=== PATIENT | female | born 1980 | race Caucasian/White ===

== ENCOUNTER 2019-04-25 23:42 | Emergency (ER) | payer BC ==
[~2019-04-25] VITALS: Ht 160 cm; Wt 88.6 kg
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
--- NOTE | 2019-04-25 23:57 | NUR ---
POLICE HANDCUFFED THE PT PLACED HER UNDER ARREST AND WALKED HER OUT THE BAY DOORS TO TAKE HER TO SENIOR LIVING.
[2019-04-26 00:01] VITALS: BP 124/81
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
== END 2019-04-26 | disposition home or self-care (01) ==
LOC: EDUNIT# 23:42 → ER FS 23:45
DX: S40.812A Abrasion of left upper arm, initial encounter (principal); T74.11XA Adult physical abuse, confirmed, initial encounter; F10.129 Alcohol abuse with intoxication, unspecified; R45.4 Irritability and anger; Y09 Assault by unspecified means
CPT/HCPCS: 99283

== ENCOUNTER 2019-08-09 11:34 | Emergency (ER) | payer BC ==
[~2019-08-09] VITALS: Ht 160 cm; Wt 87.7 kg
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
[2019-08-09] MEDS ORDERED: ONDANSETRON 4 MG (ZOFRAN) ORAL DISSOLVE TAB SL STA (11:53)
[2019-08-09] MEDS ORDERED: TETANUS & DIPHTHERIA TOX,ADULT 0.5 ML (TENIVAC) IM ONE (12:00)
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
[2019-08-09] MEDS ORDERED: METH4TAB10 PO (13:07)
[2019-08-09] MEDS ORDERED: CLIN300C11 PO (13:07)
[2019-08-09] MEDS ORDERED: HYDR-83 PO (13:07)
[2019-08-09 13:24] VITALS: BP 134/86
== END 2019-08-09 13:31 | disposition home or self-care (01) ==
LOC: EDUNIT# 11:34 → ER FS 11:37
DX: S02.31XA Fracture of orbital floor, right side, initial encounter for closed fracture (principal); S02.2XXA Fracture of nasal bones, initial encounter for closed fracture; S02.40CA Maxillary fracture, right side, initial encounter for closed fracture; S00.83XA Contusion of other part of head, initial encounter; S01.412A Laceration without foreign body of left cheek and temporomandibular area, initial encounter; Z23 Encounter for immunization; Y04.8XXA Assault by other bodily force, initial encounter
CPT/HCPCS: 70450; 70486; 72125; 90714

== ENCOUNTER 2020-07-06 06:27 | Emergency (ER) | payer SELFPAY ==
[~2020-07-06 06:27] MED LIST: ACHD5005 PO; CLIN300C12 PO; METH4TAB10 PO
[2020-07-06] MEDS ORDERED: LACTATED RINGERS 1,000 ML IV STA (06:39)
[2020-07-06] MEDS ORDERED: fentaNYL INJ 100 MCG/2 ML AMP IVP STA (06:39)
--- NOTE | 2020-07-06 06:39 | ED Abdominal Pain ---
General Stated Complaint: LOWER ABDOMINAL PAIN History of Present Illness Date Seen by Provider: July 06, 2020 Time Seen by Provider: 06:35 Initial Comments 39-year-old female presents with lower abdominal pain and cramping. Pain is in the suprapubic region. Patient reports that she has been having some abnormal vaginal bleeding for about 6 months. Patient reports that couple months ago she is started on different control pills. The did slow the bleeding. She started bleeding 3 weeks ago that lasted 2 weeks. She started up with her vaginal bleeding again. She is having significant cramping that started throughout the night last night. She denies any dysuria. She reports she is nauseated but believes is from the pain. Patient reports that she was told she had a prolapsed uterus and with some point will need a hysterectomy. She reports that the cramping starts in suprapubic area radiates bilateral and into her back. (VALDO GARCIA DO) Allergies and Home Medications Allergies Coded Allergies: No Known Drug Allergies (Unverified , 08/09/19) Home Medications Clindamycin HCl 300 Mg Capsule, 300 MG PO TID Prescribed by: VALDO GARCIA on 08/09/19 1307 Hydrocodone/Acetaminophen 1 Each Tablet, 1 EACH PO Q8H PRN for PAIN-BREAKTHROUGH Prescribed by: VALDO GARCIA on 08/09/19 1308 Medroxyprogesterone Acetate 10 Mg Tablet, 10 MG PO DAILY Prescribed by: JENNA KAUR on 07/06/20 0843 Methylprednisolone 4 Mg Tab.ds.pk, 4 MG PO UD PER DOSE PACK INSTRUCTIONS Prescribed by: VALDO GARCIA on 08/09/19 1307 Patient Home Medication List Home Medication List Reviewed: Yes (VALDO GARCIA DO) Review of Systems Review of Systems Constitutional: No chills, No fever EENTM: No Symptoms Reported Respiratory: Denies Cough, Denies Shortness of Air Cardiovascular: Denies Chest Pain, Denies Edema Gastrointestinal: Abdominal Pain; Denies Diarrhea; Nausea; Denies Vomiting Genitourinary: See HPI; Denies Burning Musculoskeletal: see HPI Skin: no symptoms reported Psychiatric/Neurological: No Symptoms Reported Endocrine: No Symptoms Reported (VALDO GARCIA DO) Past Xhuvuty-Xmzauj-Ifqgnj Hx Past Med/Social Hx: Reviewed Nursing Past Med/Soc Hx (VALDO GARCIA DO) Patient Social History Drug of Choice: marijuana Type Used: Cigarettes 2nd Hand Smoke Exposure: No Recent Hopitalizations: No (FATOUMATA GARCIALashell Turner DO) Immunizations Up To Date Tetanus Booster (TDap): More than 5yrs (GARCIAVALDO L DO) Seasonal Allergies Seasonal Allergies: No (JOSEVALDO Yue ANTON) Past Medical History Surgeries: Yes Adenoidectomy, Appendectomy, Tonsillectomy Respiratory: No Cardiac: Yes Hypertension Neurological: No Genitourinary: No Gastrointestinal: No Musculoskeletal: Yes Fibromyalgia, Rheumatoid Arthritis Endocrine: No HEENT: No Cancer: No Psychosocial: No Anxiety Integumentary: No Blood Disorders: No (VALDO GARCIA DO) Physical Exam Vital Signs Vital Signs - First Documented 07/06/20 06:30 Temp 35.7 Pulse 77 Resp 18 B/P (MAP) 119/73 (88) Pulse Ox 98 O2 Delivery Room Air (MARIA ESTHERVENMANUELJENNA Yue ANTON) Vital Signs Capillary Refill : (VALDO GARCIA ) Height/Weight/BMI Height: '" Weight: lbs. oz. kg; 34.00 BMI Method: General Appearance: moderate distress, obese Neck: full range of motion, supple Respiratory: lungs clear, normal breath sounds Cardiovascular: normal peripheral pulses, regular rate, rhythm Gastrointestinal: soft; No distended; tenderness (Suprapubic) Extremities: normal range of motion, non-tender Neurologic/Psychiatric: alert, normal mood/affect, oriented x 3 Skin: normal color, warm/dry (VALDO GARCIA DO) Progress/Results/Core Measures Results/Orders Lab Results Laboratory Tests Test 07/06/20 06:45 07/06/20 07:51 Range/Units White Blood Count 11.3 H 4.3-11.0 10^3/uL Red Blood Count 3.78 L 4.35-5.85 10^6/uL Hemoglobin 11.1 L 11.5-16.0 G/DL Hematocrit 34 L 35-52 % Mean Corpuscular Volume 89 80-99 FL Mean Corpuscular Hemoglobin 29 25-34 PG Mean Corpuscular Hemoglobin Concent 33 32-36 G/DL Red Cell Distribution Width 13.5 10.0-14.5 % Platelet Count 302 130-400 10^3/uL Mean Platelet Volume 10.2 7.4-10.4 FL Immature Granulocyte % (Auto) 0 % Neutrophils (%) (Auto) 78 H 42-75 % Lymphocytes (%) (Auto) 15 12-44 % Monocytes (%) (Auto) 5 0-12 % Eosinophils (%) (Auto) 2 0-10 % Basophils (%) (Auto) 0 0-10 % Neutrophils # (Auto) 8.8 H 1.8-7.8 X 10^3 Lymphocytes # (Auto) 1.7 1.0-4.0 X 10^3 Monocytes # (Auto) 0.6 0.0-1.0 X 10^3 Eosinophils # (Auto) 0.2 0.0-0.3 10^3/uL Basophils # (Auto) 0.0 0.0-0.1 10^3/uL Immature Granulocyte # (Auto) 0.0 0.0-0.1 10^3/uL Sodium Level 137 135-145 MMOL/L Potassium Level 3.6 3.6-5.0 MMOL/L Chloride Level 105 98-107 MMOL/L Carbon Dioxide Level 21 21-32 MMOL/L Anion Gap 11 5-14 MMOL/L Blood Urea Nitrogen 16 7-18 MG/DL Creatinine 0.91 0.60-1.30 MG/DL Estimat Glomerular Filtration Rate > 60 BUN/Creatinine Ratio 18 Glucose Level 124 H 70-105 MG/DL Calcium Level 8.9 8.5-10.1 MG/DL Corrected Calcium 9.1 8.5-10.1 MG/DL Total Bilirubin 0.2 0.1-1.0 MG/DL Aspartate Amino Transf (AST/SGOT) 11 5-34 U/L Alanine Aminotransferase (ALT/SGPT) 14 0-55 U/L Alkaline Phosphatase 61 40-136 U/L C-Reactive Protein 2.54 H <0.50 MG/DL Total Protein 7.0 6.4-8.2 GM/DL Albumin 3.8 3.2-4.5 GM/DL Urine Color YELLOW Urine Clarity CLOUDY Urine pH 6.0 5-9 Urine Specific Piffard 1.020 1.016-1.022 Urine Protein TRACE H NEGATIVE Urine Glucose (UA) NEGATIVE NEGATIVE Urine Ketones NEGATIVE NEGATIVE Urine Nitrite NEGATIVE NEGATIVE Urine Bilirubin NEGATIVE NEGATIVE Urine Urobilinogen 0.2 < = 1.0 MG/DL Urine Leukocyte Esterase NEGATIVE NEGATIVE Urine RBC (Auto) 3+ H NEGATIVE Urine RBC >100 H /HPF Urine WBC NONE /HPF Urine Squamous Epithelial Cells 5-10 /HPF Urine Crystals NONE /LPF Urine Bacteria TRACE /HPF Urine Casts NONE /LPF Urine Mucus NEGATIVE /LPF Urine Culture Indicated NO Urine Test NEGATIVE NEGATIVE (LEASTJENNA VALDES L ) My Orders Orders - JENNA KAUR DO Ct Abdomen/Pelvis W (07/06/20 07:22) Iohexol Injection (Omnipaque 350 Mg/Ml 1 (07/06/20 07:30) Received Contrast (Hold Metformin- Contr (07/06/20 07:30) Sodium Chloride Flush (Catheter Flush Sy (07/06/20 07:30) Ns (Ivpb) (Sodium Chloride 0.9% Ivpb Bag (07/06/20 07:30) (JENNA KAUR DO) Medications Given in ED Current Medications Medications Dose Ordered Sig/Darell Route Start Time Stop Time Status Last Admin Dose Admin Iohexol 100 ml ONCE ONCE IV 07/06/20 07:30 07/06/20 07:32 DC 07/06/20 07:39 100 ML Ondansetron HCl 4 mg ONCE ONCE IVP 07/06/20 06:45 07/06/20 06:46 DC 07/06/20 06:46 4 MG Sodium Chloride 10 ml NEEDED PRN IV 07/06/20 07:30 07/06/20 07:39 10 ML Sodium Chloride 100 ml ONCE ONCE IV 07/06/20 07:30 07/06/20 07:32 DC 07/06/20 07:39 80 ML (JENNA KAUR DO) Vital Signs/I&O 07/06/20 06:30 Temp 35.7 Pulse 77 Resp 18 B/P (MAP) 119/73 (88) Pulse Ox 98 O2 Delivery Room Air (JENNA KAUR DO) Diagnostic Imaging Comments FINDINGS: The visualized portions of the lung bases are clear. The heart is not enlarged. There is no pericardial effusion. The liver is unremarkable in size and contour. There is no identified liver lesion. The main, right, and left portal veins are patent. The gallbladder is unremarkable. There is no intrahepatic or extrahepatic bile duct dilation. The main pancreatic duct is not abnormally dilated. Unremarkable appearance of the pancreatic parenchyma. The spleen is normal in size. The adrenal glands are unremarkable. Unremarkable appearance of the renal parenchyma. The urinary collecting systems are not distended. There is no identified renal or ureteral stone. Urinary bladder is unremarkable. There is low-attenuation at the level of the lower uterine segment/cervix which is nonspecific. There is also question of abnormal low-attenuation in the endometrial cavity, particularly in its mid to lower aspect. The intestinal tract is not distended. There is no evidence of acute appendicitis. There is no free intraperitoneal air. There is no drainable fluid collection. There is no free pelvic fluid. There is a probable right ovarian cyst on axial image 68 measuring 2.5 cm in size. There is no identified abnormally enlarged lymph node in the abdomen or pelvis meeting CT size criteria for adenopathy. There is no identified acute bony abnormality. There are disc degenerative changes at L4-L5. There are mild disc degenerative changes of the lower thoracic spine. IMPRESSION: CT ABDOMEN AND PELVIS. 1. Low-attenuation in the region of the lower uterine segment/cervix as well as questionable abnormal fluid in the endometrial cavity, particularly within its mid and lower aspect. Recommend dedicated pelvic ultrasound for further assessment. 2. Probable 2.5 cm right ovarian cyst. 3. No otherwise identified potential acute abnormality in the abdomen or pelvis. Dictated on workstation # [id number] Dict: 07/06/20 0801 Trans: 07/06/20 0830 [facility] [id number] Interpreted by: ADRIENNE WHITLOCK MD Electronically signed by: (JENNA KAUR DO) Departure Impression Primary Impression: DUB (dysfunctional uterine bleeding) Disposition: 01 HOME, SELF-CARE Condition: Stable Departure-Patient Inst. Decision time for Depature: 08:41 (JENNA KAUR DO) Referrals: ELADIO JAMIL DO (PCP/Family) Primary Care Physician VIC YE DO Add. Discharge Instructions: Follow up with your PCP or Dr Vic Ye in 1 week for further evaluation of your irregular bleeding. You are recommended to have a pelvic ultrasound as well. Scripts Medroxyprogesterone Acetate (Provera) 10 Mg Tablet 10 MG PO DAILY, #10 TAB Prov: JENNA KAUR DO 07/06/20 VALDO GARCIA DO July 06, 2020 06:39 JENNA KAUR DO July 06, 2020 08:43
[2020-07-06] MEDS ORDERED: ONDANSETRON 4 MG/2 ML (SDV) Z0FRAN IVP ONE (06:45)
[2020-07-06 07:01] LABS: BASOPHILS % (AUTO) 0 % (0-10); EOSINOPHILS # (AUTO) 0.2 10^3/uL (0.0-0.3); EOSINOPHILS % (AUTO) 2 % (0-10); HEMATOCRIT 34 % (35-52); HEMOGLOBIN 11.1 G/DL (11.5-16.0); LYMPHOCYTES # (AUTO) 1.7 X 10^3 (1.0-4.0); LYMPHOCYTES % (AUTO) 15 % (12-44); MEAN CORPUSCULAR HEMOGLOBIN 29 PG (25-34); MEAN CORPUSCULAR HGB CONC 33 G/DL (32-36); MEAN CORPUSCULAR VOLUME 89 FL (80-99); MEAN PLATELET VOLUME 10.2 FL (7.4-10.4); MONOCYTES # (AUTO) 0.6 X 10^3 (0.0-1.0); MONOCYTES % (AUTO) 5 % (0-12); NEUTROPHILS # (AUTO) 8.8 X 10^3 (1.8-7.8); NEUTROPHILS % (AUTO) 78 % (42-75); PLATELET COUNT 302 10^3/uL (130-400); WHITE BLOOD COUNT 11.3 10^3/uL (4.3-11.0)
[2020-07-06 07:19] LABS: ALKALINE PHOSPHATASE 61 U/L (40-136); BILIRUBIN,TOTAL 0.2 MG/DL (0.1-1.0); BUN/CREATININE RATIO 18; CALCIUM 8.9 MG/DL (8.5-10.1); CARBON DIOXIDE 21 MMOL/L (21-32); CHLORIDE 105 MMOL/L (98-107); CREATININE SERUM 0.91 MG/DL (0.60-1.30); GFR ESTIMATED > 60; GLUCOSE 124 MG/DL (70-105); POTASSIUM 3.6 MMOL/L (3.6-5.0); SODIUM 137 MMOL/L (135-145)
[2020-07-06 07:20] LABS: ALANINE AMINOTRANSFERASE 14 U/L (0-55); ALBUMIN 3.8 GM/DL (3.2-4.5)
[2020-07-06] MEDS ORDERED: CATHETER FLUSH 10 ML SYR IV PRN (07:30)
[2020-07-06] MEDS ORDERED: NS 100 ML (IVPB) BAG IV ONE (07:30)
[2020-07-06] MEDS ORDERED: IOHEXOL 350 MG/ML 100 ML (OMNIPAQUE 350) VIAL IV ONE (07:30)
[2020-07-06] MEDS ORDERED: HOLD METFORMIN - RECEIVED CONTRAST 20 ML VIAL IV SCH (07:30)
[2020-07-06 08:00] LABS: BACTERIA,URINE TRACE /HPF; BILIRUBIN,URINE NEGATIVE (NEGATIVE); CLARITY,URINE CLOUDY; COLOR,URINE YELLOW; GLUCOSE, URINE (UA) NEGATIVE (NEGATIVE); KETONES,URINE NEGATIVE (NEGATIVE); LEUKOCYTE ESTERASE ,URINE NEGATIVE (NEGATIVE); NITRITE,URINE NEGATIVE (NEGATIVE); PROTEIN,URINE TRACE (NEGATIVE); RBC,URINE >100 /HPF
--- NOTE | 2020-07-06 08:31 | Diagnostic Imaging Report ---
PROCEDURE: CT abdomen and pelvis with contrast. TECHNIQUE: Multiple contiguous axial images were obtained through the abdomen and pelvis after administration of intravenous contrast. Auto Exposure Controls were utilized during the CT exam to meet ALARA standards for radiation dose reduction. All CT scans use one or more of the following dose optimizing techniques: automated exposure control, MA and/or KvP adjustment based on patient size and exam type or iterative reconstruction. DATE: 07/06/2020. COMPARISON: None. INDICATION: 39-year-old female, pelvic pain and dysfunctional uterine bleeding. FINDINGS: The visualized portions of the lung bases are clear. The heart is not enlarged. There is no pericardial effusion. The liver is unremarkable in size and contour. There is no identified liver lesion. The main, right, and left portal veins are patent. The gallbladder is unremarkable. There is no intrahepatic or extrahepatic bile duct dilation. The main pancreatic duct is not abnormally dilated. Unremarkable appearance of the pancreatic parenchyma. The spleen is normal in size. The adrenal glands are unremarkable. Unremarkable appearance of the renal parenchyma. The urinary collecting systems are not distended. There is no identified renal or ureteral stone. Urinary bladder is unremarkable. There is low-attenuation at the level of the lower uterine segment/cervix which is nonspecific. There is also question of abnormal low-attenuation in the endometrial cavity, particularly in its mid to lower aspect. The intestinal tract is not distended. There is no evidence of acute appendicitis. There is no free intraperitoneal air. There is no drainable fluid collection. There is no free pelvic fluid. There is a probable right ovarian cyst on axial image 68 measuring 2.5 cm in size. There is no identified abnormally enlarged lymph node in the abdomen or pelvis meeting CT size criteria for adenopathy. There is no identified acute bony abnormality. There are disc degenerative changes at L4-L5. There are mild disc degenerative changes of the lower thoracic spine. IMPRESSION: CT ABDOMEN AND PELVIS. 1. Low-attenuation in the region of the lower uterine segment/cervix as well as questionable abnormal fluid in the endometrial cavity, particularly within its mid and lower aspect. Recommend dedicated pelvic ultrasound for further assessment. 2. Probable 2.5 cm right ovarian cyst. 3. No otherwise identified potential acute abnormality in the abdomen or pelvis. Dictated by: Dictated on workstation # [id number]
[2020-07-06] MEDS ORDERED: MEDR10TA PO (08:43)
[2020-07-06 08:50] VITALS: BP 124/72
== END 2020-07-06 08:53 | disposition home or self-care (01) ==
LOC: EDUNIT# 06:27 → ER FS 06:30
DX: N93.8 Other specified abnormal uterine and vaginal bleeding (principal); I10 Essential (primary) hypertension; E66.9 Obesity, unspecified; Z68.34 Body mass index [BMI] 34.0-34.9, adult
CPT/HCPCS: 36415; 74177; 80053; 81000; 84703; 85025; 86141

== ENCOUNTER 2020-10-07 15:16 | Emergency (ER) | payer OTHER ==
[~2020-10-07] VITALS: Ht 160 cm; Wt 104.0 kg
[~2020-10-07 15:16] MED LIST changes: +MEDR10TA PO
[2020-10-07 15:44] VITALS: BP 152/96
--- NOTE | 2020-10-07 15:49 | ED Integumentary General ---
General Stated Complaint: FOREHEAD LAC Source: patient Exam Limitations: no limitations History of Present Illness Date Seen by Provider: Oct 07, 2020 Time Seen by Provider: 15:30 Initial Comments 39-year-old female with past medical history of hypertension coming in after she stood up at work and hit her forehead on a corner causing a cut. This occurred 20 minutes prior to arrival. She did not pass out, have any vision changes, headache, vomiting, weakness, numbness, or any other concerns. Tetanus updated within the past year. She is otherwise denying any other acute complaints. Allergies and Home Medications Allergies Coded Allergies: No Known Drug Allergies (Unverified , 08/09/19) Home Medications Clindamycin HCl 300 Mg Capsule, 300 MG PO TID Prescribed by: VALDO GARCIA on 08/09/19 1307 Hydrocodone/Acetaminophen 1 Each Tablet, 1 EACH PO Q8H PRN for PAIN-BREAKTHROUGH Prescribed by: VALDO GARCIA on 08/09/19 1308 Medroxyprogesterone Acetate 10 Mg Tablet, 10 MG PO DAILY Prescribed by: JENNA KAUR on 07/06/20 0843 Methylprednisolone 4 Mg Tab.ds.pk, 4 MG PO UD PER DOSE PACK INSTRUCTIONS Prescribed by: VALDO GARCIA on 08/09/19 1307 Patient Home Medication List Home Medication List Reviewed: Yes Review of Systems Review of Systems Constitutional: No fever EENTM: No blurred vision Respiratory: No cough Cardiovascular: No chest pain Gastrointestinal: No abdominal pain Genitourinary: No dysuria Musculoskeletal: No back pain Skin: No rash Psychiatric/Neurological: Denies Anxiety Endocrine: No Symptoms Reported Hematologic/Lymphatic: No Symptoms Reported All Other Systems Reviewed Negative Unless Noted: Yes Past Behjmuq-Uraaut-Zazkwj Hx Patient Social History Tobacco Use?: Yes Immunizations Up To Date Tetanus Booster (TDap): More than 5yrs Seasonal Allergies Seasonal Allergies: No Past Medical History Surgeries: Yes Adenoidectomy, Appendectomy, Tonsillectomy, Tubal Ligation Respiratory: No Cardiac: Yes Hypertension Neurological: No Genitourinary: No Gastrointestinal: No Musculoskeletal: Yes Fibromyalgia, Rheumatoid Arthritis Endocrine: No HEENT: No Cancer: No Psychosocial: No Anxiety Integumentary: No Blood Disorders: No Physical Exam Vital Signs Capillary Refill : General Appearance: WD/WN, no apparent distress HEENT: PERRL/EOMI, normal ENT inspection, pharynx normal Neck: non-tender, full range of motion, supple, normal inspection Cardiovascular: regular rate, rhythm, no edema, no murmur Respiratory: chest non-tender, lungs clear, normal breath sounds, no respiratory distress, no accessory muscle use Gastrointestinal: normal bowel sounds, non tender, soft; No distended, No guarding, No rebound Back: normal inspection Extremities: normal range of motion, non-tender, normal inspection, no pedal edema, no calf tenderness Neurologic/Psychiatric: no motor/sensory deficits, alert, normal mood/affect, oriented x 3 Skin: normal color, warm/dry Skin Problem Location: other (1 cm laceration to the middle of her forehead t hat is hemostatic, roughly 1 mm in depth) Lymphatic: no adenopathy Procedures/Interventions Wound Location: Face Other Wound Location forehead Wound Length (cm): 1 Wound's Depth, Shape: superficial Wound Explored: clean Irrigated w/ Saline (ccs): 100 Betadine Prep?: Yes Wound Debrided: minimal Other Closure Supply: Steri Strip 02/18", Mastisol, Wound Adhesive Progress/Results/Core Measures Progress Progress Note : Progress Note 39-year-old female with above history coming in after she cut her forehead. ABCs were intact and vitals were stable on presentation. GCS 15. She is C anadian head CT rule negative and I do not believe she needs a scan of her head. Tetanus is updated. The wound was cleaned and closed with glue followed by Steri-Strips. It was hemostatic during the entire visit. I believe she is stable for discharge. She was sent home with strict return precautions Departure Impression Primary Impression: Forehead laceration Qualified Codes: S01.81XA - Laceration without foreign body of other part of head, initial encounter Disposition: HOME, SELF-CARE Condition: Stable Departure-Patient Inst. Referrals: COLLIN BARRERA APRN (PCP/Family) Primary Care Physician Patient Instructions: Laceration Repair With Glue ED Add. Discharge Instructions: You were seen in the emergency department for a laceration to her forehead. It was closed with glue and Steri-Strips. Let the Steri-Strips fall off on their own. Do not let it get wet for the next few days. Come back if you have any concerns. LAWRENCE WEBB MD Oct 07, 2020 15:49
--- OUTSIDE RECORDS SUMMARY | 2020-10-07 22:45 | XMS REPORT | Clinical Summary ---
Author Author [facility] Organization [facility] Address Unknown Phone Unavailable Care Team Providers Care Fructose Loader Name Role Phone Trace Freeman DO PCP Source Comments Some departments are not documenting in the electronic medical record. If you d o not see the information that you expected, contact Release of Information in [facility] [employer] Information Management department at [phone] for further assistan ce in locating additional records.[facility] Allergies No Known Active Allergies Medications End Date Status Medication Sig Dispensed Refills Start Date Active topiramate 200 mg CSpX Take 200 mg 0 by mouth twice daily. Active citalopram (CELEXA) 40 mg Take 40 mg by 0 tablet mouth daily. Active clonazePAM (KLONOPIN) 2 Take 2 mg by 0 mg tablet mouth four times daily. Active cyclobenzaprine Take 10 mg by 0 (FLEXERIL) 10 mg tablet mouth three times daily as needed for Muscle Cramps. Active rizatriptan (MAXALT) 10 Take 10 mg by 0 mg tablet mouth once as needed. May repeat in 2 hours in needed Active sumatriptan succinate Take 100 mg 0 (IMITREX) 100 mg tablet by mouth as Needed for Migraine symptoms. Dose may be repeated in 2 hours if needed. Max of 2 tablets in 24 hours. Active mometasone (NASONEX) 50 Apply 2 0 mcg/actuation nasal spray sprays to each nostril as directed daily. Active loratadine (CLARITIN) 5 Take 5 mg by 0 mg/5 mL oral solution mouth daily. Active esomeprazole DR (NEXIUM) Take 20 mg by 0 20 mg capsule mouth every morning. Take on an empty stomach at least 1 hour before or 2 hours after food. Active ibuprofen (ADVIL) 200 mg Take 200 mg 0 tablet by mouth every 6 hours as needed for Pain. Take with food. Active acetaminophen (TYLENOL Take by 0 PO) mouth. Active ascorbic acid (VITAMIN C Take by 0 PO) mouth. Active ferrous sulfate (IRON PO) Take by 0 mouth. Active traMADol (ULTRAM) 50 mg Take 50 mg by 0 tablet mouth every 6 hours as needed for Pain. Active lisinopril (ZESTRIL) 5 mg Take 5 mg by 0 tablet mouth daily. Active ondansetron (ZOFRAN) 4 mg Take 4 mg by 0 tablet mouth every 8 hours as needed for Nausea or Vomiting. Active pilocarpine (SALAGEN) 5 Take one 90 tablet 3 mg tablet tablet by 0 mouth three times daily. Active Problems Not on file Surgical History Surgery Date Site/Laterality Comments HX APPENDECTOMY HX TUBAL LIGATION TONSIL AND ADENOIDECTOMY Medical History Medical History Date Comments Depression Anxiety disorder Rheumatoid arthritis (HCC) Allergy Headache Family History Medical History Relation Name Comments Arthritis-osteo Father Heart Disease Father Cancer Mother Fibromyalgia Mother Heart Disease Mother Relation Name Status Comments Father Mother Social History Date Tobacco Use Types Packs/Day Years Used Current Every Day Smoker Cigarettes 1 23 Smokeless Tobacco: Never Used Comments Alcohol Use Standard Drinks/Week occationally Yes 0 (1 standard drink = 0.6 o z pure alcohol) Sex Assigned at Date Recorded Not on file Last Filed Vital Signs Reading Time Taken Comments Vital Sign 145/95 03/23/2019 4:15 PM HEARING STENOGRAPHER Blood Pressure 99 03/23/2019 4:15 PM HEARING STENOGRAPHER Pulse 36.8 C (98.2 F) 03/23/2019 4:15 PM HEARING STENOGRAPHER Temperature 16 03/23/2019 4:15 PM HEARING STENOGRAPHER Respiratory Rate 97% 03/23/2019 4:15 PM HEARING STENOGRAPHER Oxygen Saturation - - Inhaled Oxygen Concentration 90.3 kg (199 lb) 03/23/2019 4:15 PM HEARING STENOGRAPHER Weight 160 cm (5' 2.99") 03/23/2019 4:15 PM HEARING STENOGRAPHER Height 35.26 03/23/2019 4:15 PM HEARING STENOGRAPHER Body Mass Index Plan of Treatment Health Maintenance Due Date Last Done Comments HIV SCREENING 10/12/1994 DTAP/TDAP VACCINES (1 - 10/12/1997 Tdap) HEPATITIS C SCREENING 10/12/1997 PHYSICAL (COMPREHENSIVE) 10/12/1997 EXAM CERVICAL CANCER SCREENING 10/12/2000 BREAST CANCER SCREENING 2019 INFLUENZA VACCINE 11/15/2020 Results Not on filefrom Last 3 Months Insurance Type Payer Benefit Subscriber ID Effective Phone Address Plan / Dates Group PPO [facility]BS [facility] [id number] 2018- [facility] Present [address] [phone] Advance Directives Patient Production Tech Explanation Type Date Recorded Advance Directive/DPOA
== END 2020-10-07 15:54 | disposition home or self-care (01) ==
LOC: EDUNIT# 15:16 → ER FS 15:18
DX: S01.81XA Laceration without foreign body of other part of head, initial encounter (principal); I10 Essential (primary) hypertension; Z79.52 Long term (current) use of systemic steroids; W22.8XXA Striking against or struck by other objects, initial encounter

== ENCOUNTER 2020-11-05 23:15 | Emergency (ER) | payer OTHER ==
[~2020-11-05] VITALS: Ht 160 cm; Wt 104.2 kg
--- NOTE | 2020-11-05 23:24 | ED Upper Extremity ---
General Chief Complaint: Laceration Stated Complaint: RIGHT FINGER LACERATION Source: patient, old records History of Present Illness Date Seen by Provider: Nov 05, 2020 Time Seen by Provider: 23:19 Initial Comments 40 yo female presenting from work at [employer]. 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 She had her last tetanus update August 09, 2019. She is left hand dominant and the cut is on the right index finger. she has normal sensation and movement, but increased pain with movement. The cut is over the PIP joint of right index finger. No foreign body. Bleeding controlled with pressure dressing on arrival to ED. Onset: just prior to arrival Severity: mild Pain/Injury Location: right 2nd finger Method of Injury: incised Modifying Factors: Worse With Movement Allergies and Home Medications Allergies Coded Allergies: No Known Drug Allergies (Unverified , 08/09/19) Patient Home Medication List Home Medication List Reviewed: Yes Cephalexin (Cephalexin) 500 Mg Capsule, 500 MG PO TID Prescribed by: SAHIL ARRIETA on 11/06/20 0015 Clindamycin HCl (Clindamycin HCl) 300 Mg Capsule, 300 MG PO TID Prescribed by: VALDO GARCIA on 08/09/19 1307 Hydrocodone/Acetaminophen (Hydrocodone-Acetamin 5-325 mg) 1 Each Tablet, 1 EACH PO Q8H PRN for PAIN-BREAKTHROUGH Prescribed by: VALDO GARCIA on 08/09/19 1308 Medroxyprogesterone Acetate (Provera) 10 Mg Tablet, 10 MG PO DAILY Prescribed by: JENNA KAUR on 07/06/20 0843 Methylprednisolone (Methylprednisolone Dose Pack) 4 Mg Tab.ds.pk, 4 MG PO UD Prescribed by: VALDO GARCIA on 08/09/19 1307 Review of Systems Constitutional: No chills, No fever EENTM: nose congestion, throat pain Respiratory: No cough Cardiovascular: no symptoms reported Gastrointestinal: no symptoms reported Genitourinary: no symptoms reported Musculoskeletal: see HPI Skin: see HPI Psychiatric/Neurological: Denies Numbness, Denies Paresthesia Past Bkukwhh-Iizijm-Zhjeuz Hx Immunizations Up To Date Tetanus Booster (TDap): More than 5yrs Seasonal Allergies Seasonal Allergies: No Past Medical History Surgeries: Yes Adenoidectomy, Appendectomy, Tonsillectomy, Tubal Ligation Respiratory: No Cardiac: Yes Hypertension Neurological: No Genitourinary: No Gastrointestinal: No Musculoskeletal: Yes Fibromyalgia, Rheumatoid Arthritis Endocrine: No HEENT: No Cancer: No Psychosocial: No Anxiety Integumentary: No Blood Disorders: No Physical Exam Vital Signs Vital Signs - First Documented 11/05/20 23:27 Temp 36.1 Pulse 95 Resp 14 B/P (MAP) 122/84 (97) Pulse Ox 98 O2 Delivery Room Air Capillary Refill : Height, Weight, BMI Height: '" Weight: lbs. oz. kg; 40.00 BMI Method: General Appearance: WD/WN, no apparent distress HEENT: PERRL/EOMI, normal ENT inspection, TMs normal, pharynx normal Neck: non-tender, full range of motion, supple, normal inspection Cardiovascular: normal peripheral pulses, regular rate, rhythm Respiratory: chest non-tender, lungs clear, normal breath sounds, no respiratory distress, no accessory muscle use Hand: laceration (right index finger PIP joint), limited ROM (due to pain), soft tissue tenderness Neurologic/Tendon: normal sensation, normal motor functions, normal tendon functions Neurologic/Psychiatric: alert, oriented x 3 Skin: normal color, warm/dry Procedures/Interventions Wound Location: Upper Extremities (right index finger PIP joint) Wound Length (cm): 1.3 Wound's Depth, Shape: sub Q Wound Explored: clean Anesthesia: 1% Lidocaine (digital ring block) Volume Anesthetic (ccs): 6 Suture: Ethlion Suture Size: 4-0 Number of Sutures: 4 Layer Closure?: 1 Sterile Dressing Applied?: Yes Progress After obtaining verbal consent from the patient the right index finger was anesthetized using a digital block approach with 1% plain lidocaine. A total of 6 mL of 1% plain lidocaine were infiltrated in a ring block fashion for the digital block. Then chlorhexidine scrub soap and sterile water was used to clean the wound. The wound was explored and no foreign bodies were seen. The wound edges were approximated using 4-0 Ethilon. A total of 4 simple interrupted stitches were placed and the wound edges were well approximated. Patient tolerated procedure well without any immediate complications. A postprocedure x- ray was obtained and confirmed that there were no foreign bodies or bony injury on my review of the films. Patient was placed in a bulky dressing and splint for tonight and advised to use the splint to prevent bending of her finger until the stitches are removed in 2 weeks. Take a 7-day course of Keflex to help prevent infection since it was a dirty knife. Counseled on follow-up and return precautions. Progress/Results/Core Measures Results/Orders My Orders Orders - SAHIL ARRIETA MD Lidocaine 1% Inj 20 Ml (Xylocaine 1% Inj (11/05/20 23:23) Suture Set At Bedside (11/05/20 23:23) Wound Dressing-Ed (11/05/20 23:23) Finger(S) (11/06/20 00:05) Ed Ortho/Other Supplies Order (11/06/20 00:05) Orthopedic Equiment (11/06/20 00:05) Cephalexin Capsule (Keflex Capsule) (11/06/20 00:06) Vital Signs/I&O 11/05/20 23:27 Temp 36.1 Pulse 95 Resp 14 B/P (MAP) 122/84 (97) Pulse Ox 98 O2 Delivery Room Air Progress Progress Note : Progress Note Patient is neurovascular and tendon intact to the right index finger. She is left-hand dominant. Her tetanus is up-to-date from July 2019. Verbally consented and proceeded with repair of the laceration. The wound edges were well approxi mated using 4-0 Ethilon and a total of 4 simple interrupted stitches. Sent with splint to place tomorrow when she takes off the bulky dressing. Work note detailing light duty. Counseled on follow-up and return precautions. Given first dose of Keflex here and prescription sent to apothecary at request of patient. Diagnostic Imaging Diagonstic Imaging: Xray Plain Films/CT/US/NM/MRI: other (Index finger) Comments On my review of the films of the right index finger there is no acute bony injury and no foreign body. Reviewed: Reviewed by Me Departure Impression Primary Impression: Laceration of right index finger w/o foreign body w/o damage to nail Qualified Codes: S61.210A - Laceration without foreign body of right index finger without damage to nail, initial encounter Disposition: HOME, SELF-CARE Condition: Stable Departure-Patient Inst. Decision time for Depature: 00:29 Referrals: COLLIN BARRERA APRN (PCP/Family) Primary Care Physician Patient Instructions: Laceration Repair With Stitches ED, Wound Care ED Add. Discharge Instructions: Keep wound clean and dry for first 24 hours. Then keep the wound covered if it might get dirty and while at work. Use splint to prevent bending of your finger. Follow up with Work Comp clinic for continued concerns and removal of stitches after 14 days or be seen sooner if concerns for infection such as redness streaking up your finger and hand, pus draining from wound, fever over 101 F. May take Ibuprofen and Acetaminophen as needed for pain. Take full course of antibiotics to help prevent infection All discharge instructions reviewed with patient and/or family. Voiced understanding. Scripts Cephalexin (Cephalexin) 500 Mg Capsule 500 MG PO TID for finger laceration for 7 Days, #21 CAP 0 Refills Prov: SAHIL ARRIETA MD 11/06/20 SAHIL ARRIETA MD Nov 05, 2020 23:24
[2020-11-06] MEDS ORDERED: CEPH500C PO (00:15)
[2020-11-06] MEDS: CEPHALEXIN 250 MG (KEFLEX) CAP PO STA (00:29)
[2020-11-06] MEDS: LIDOCAINE 1% INJ 20 ML 20 ML VIAL INJ STA (00:30)
[2020-11-06 00:35] VITALS: BP 122/84
--- NOTE | 2020-11-06 07:30 | Diagnostic Imaging Report ---
Right hand at 12:15h. INDICATION: Laceration to index finger 4 views were obtained. There are no prior studies for comparison. There is no fracture, dislocation or acute bony abnormality evident. The lateral view does show soft tissue edema along the posterior aspect of the PIP joint of the 2nd digit. There may be a small laceration this area as well. There is no radiopaque foreign body identified however. IMPRESSION: There is soft tissue edema about the PIP joint of the 2nd digit but there is no fracture noted nor is there any sign of a radiopaque foreign body. Dictated by: Dictated on workstation # [id number]
== END 2020-11-06 00:35 | disposition home or self-care (01) ==
LOC: EDUNIT# 23:15 → ER FS 23:19
DX: S61.210A Laceration without foreign body of right index finger without damage to nail, initial encounter (principal); I10 Essential (primary) hypertension; Z79.52 Long term (current) use of systemic steroids; W26.0XXA Contact with knife, initial encounter
CPT/HCPCS: 64450; 73140

== ENCOUNTER 2021-06-05 20:30 | Emergency (ER) | payer SELFPAY ==
[~2021-06-05 20:30] MED LIST changes: +CEPH500C PO; +CLIN-144 PO; -CLIN300C12 PO
[2021-06-05] MEDS ORDERED: TRANEXAMIC ACID 100 MG/ML 10 ML INJECTION ONE (21:00)
--- NOTE | 2021-06-05 21:01 | ED General ---
General Stated Complaint: SEVERE BLEEDING Source of Information: Patient Exam Limitations: No Limitations History of Present Illness Date Seen by Provider: Jun 05, 2021 Time Seen by Provider: 20:57 Initial Comments To ER with severe vaginal bleeding. This been an ongoing problem for her. She follows [facility]. She finished her third round of Provera (that was a 10-day course) 1 week ago. At the time of completion of the Provera she had an increase in vaginal bleeding such that she is using 1 tampon every 30 minutes. She is feeling lightheaded. She has been referred to gynecology and has filled out paperwork but has not yet seen gynecology. She does not smoke. Timing/Duration: Getting Worse Severity: Moderate Associated Systoms: Denies Symptoms Allergies and Home Medications Allergies Coded Allergies: No Known Drug Allergies (Unverified , 08/09/19) Patient Home Medication List Home Medication List Reviewed: Yes Cephalexin (Cephalexin) 500 Mg Capsule, 500 MG PO TID Prescribed by: SAHIL ARRIETA on 11/06/20 0015 Clindamycin HCl (Clindamycin HCl) 300 Mg Capsule, 300 MG PO TID Prescribed by: VALDO GARCIA on 08/09/19 1307 Hydrocodone/Acetaminophen (Hydrocodone-Acetamin 5-325 mg) 1 Each Tablet, 1 EACH PO Q8H PRN for PAIN-BREAKTHROUGH Prescribed by: VALDO GARCIA on 08/09/19 1308 Medroxyprogesterone Acetate (Provera) 10 Mg Tablet, 10 MG PO DAILY Prescribed by: JENNA KAUR on 07/06/20 0843 Methylprednisolone (Methylprednisolone Dose Pack) 4 Mg Tab.ds.pk, 4 MG PO UD Prescribed by: VALDO GARCIA on 08/09/19 1307 Tranexamic Acid (Lysteda) 650 Mg Tablet, 2 TAB PO TID Prescribed by: ÓSCAR LACKEY on 06/05/21 0615 Review of Systems Review of Systems Constitutional: see HPI EENTM: see HPI Respiratory: no symptoms reported Cardiovascular: no symptoms reported Genitourinary: no symptoms reported Musculoskeletal: no symptoms reported Skin: no symptoms reported Psychiatric/Neurological: No Symptoms Reported Hematologic/Lymphatic: No Symptoms Reported Past Hjyqfhk-Hqsglb-Mzqfyt Hx Immunizations Up To Date Tetanus Booster (TDap): More than 5yrs Seasonal Allergies Seasonal Allergies: No Past Medical History Surgeries: Yes Adenoidectomy, Appendectomy, Tonsillectomy, Tubal Ligation Respiratory: No Cardiac: Yes Hypertension Neurological: No Genitourinary: No Gastrointestinal: No Musculoskeletal: Yes Fibromyalgia, Rheumatoid Arthritis Endocrine: No HEENT: No Cancer: No Psychosocial: No Anxiety Integumentary: No Blood Disorders: No Physical Exam Vital Signs Vital Signs - First Documented 06/05/21 20:49 Temp 37.0 Pulse 90 Resp 16 B/P (MAP) 137/89 (105) Pulse Ox 98 O2 Delivery Room Air Capillary Refill : Height, Weight, BMI Height: '" Weight: lbs. oz. kg; 40.00 BMI Method: General Appearance: No Apparent Distress, WD/WN Eyes: Bilateral Eye Normal Inspection, Bilateral Eye PERRL, Bilateral Eye EOMI Neck: Full Range of Motion, Normal Inspection Respiratory: No Accessory Muscle Use, No Respiratory Distress Cardiovascular: Regular Rate, Rhythm, Normal Peripheral Pulses Gastrointestinal: Normal Bowel Sounds, Soft, Tenderness Genital/Rectal: Normal Genital Exam, Other (Pelvic exam done with Lissa RN at the bedside. Using Yunker suction the clotted blood was suctioned from the vaginal vault. She has an anteverted cervix. No active bleeding.) Extremity: Normal Capillary Refill, Normal Inspection Neurologic/Psychiatric: Alert, Oriented x3 Skin: Normal Color, Warm/Dry Procedures/Interventions Suture Size: 4-0 Progress/Results/Core Measures Suspected Sepsis SIRS Temperature: Pulse: Respiratory Rate: Laboratory Tests 06/05/21 21:00: White Blood Count 12.9H Blood Pressure / Mean: Laboratory Tests 06/05/21 21:00: Creatinine 0.83, INR Comment 0.9, Platelet Count 316, Total Bilirubin 0.1 Results/Orders Lab Results Laboratory Tests Test 06/05/21 21:00 06/05/21 22:00 Range/Units White Blood Count 12.9 H 4.3-11.0 10^3/uL Red Blood Count 3.85 3.80-5.11 10^6/uL Hemoglobin 10.2 L 11.5-16.0 g/dL Hematocrit 33 L 35-52 % Mean Corpuscular Volume 85 80-99 fL Mean Corpuscular Hemoglobin 27 25-34 pg Mean Corpuscular Hemoglobin Concent 31 L 32-36 g/dL Red Cell Distribution Width 16.2 H 10.0-14.5 % Platelet Count 316 130-400 10^3/uL Mean Platelet Volume 10.0 9.0-12.2 fL Immature Granulocyte % (Auto) 0 % Neutrophils (%) (Auto) 77 H 42-75 % Lymphocytes (%) (Auto) 16 12-44 % Monocytes (%) (Auto) 5 0-12 % Eosinophils (%) (Auto) 1 0-10 % Basophils (%) (Auto) 0 0-10 % Neutrophils # (Auto) 9.9 H 1.8-7.8 10^3/uL Lymphocytes # (Auto) 2.1 1.0-4.0 10^3/uL Monocytes # (Auto) 0.7 0.0-1.0 10^3/uL Eosinophils # (Auto) 0.2 0.0-0.3 10^3/uL Basophils # (Auto) 0.0 0.0-0.1 10^3/uL Immature Granulocyte # (Auto) 0.0 0.0-0.1 10^3/uL Prothrombin Time 12.5 12.2-14.7 SEC INR Comment 0.9 0.8-1.4 Sodium Level 136 135-145 MMOL/L Potassium Level 3.8 3.6-5.0 MMOL/L Chloride Level 104 98-107 MMOL/L Carbon Dioxide Level 20 L 21-32 MMOL/L Anion Gap 12 5-14 MMOL/L Blood Urea Nitrogen 16 7-18 MG/DL Creatinine 0.83 0.60-1.30 MG/DL Estimat Glomerular Filtration Rate 91 BUN/Creatinine Ratio 19 Glucose Level 100 70-105 MG/DL Calcium Level 9.3 8.5-10.1 MG/DL Corrected Calcium 9.5 8.5-10.1 MG/DL Total Bilirubin 0.1 0.1-1.0 MG/DL Aspartate Amino Transf (AST/SGOT) 10 5-34 U/L Alanine Aminotransferase (ALT/SGPT) 17 0-55 U/L Alkaline Phosphatase 65 40-136 U/L Total Protein 6.9 6.4-8.2 GM/DL Albumin 3.7 3.2-4.5 GM/DL Serum Test, Qualitative NEGATIVE NEGATIVE Urine Color YELLOW Urine Clarity SL CLOUDY Urine pH 6.0 5-9 Urine Specific [place] 1.015 L 1.016-1.022 Urine Protein NEGATIVE NEGATIVE Urine Glucose (UA) NEGATIVE NEGATIVE Urine Ketones NEGATIVE NEGATIVE Urine Nitrite NEGATIVE NEGATIVE Urine Bilirubin NEGATIVE NEGATIVE Urine Urobilinogen 0.2 < = 1.0 MG/DL Urine Leukocyte Esterase NEGATIVE NEGATIVE Urine RBC (Auto) 3+ H NEGATIVE Urine RBC 10-25 H /HPF Urine WBC NONE /HPF Urine Squamous Epithelial Cells 2-5 /HPF Urine Crystals NONE /LPF Urine Bacteria MODERATE H /HPF Urine Casts NONE /LPF Urine Mucus NEGATIVE /LPF Urine Culture Indicated YES My Orders Orders - ÓSCAR LACKEY APRN Cbc With Automated Diff (06/05/21 20:45) Hcg,Qualitative Serum (06/05/21 20:45) Comprehensive Metabolic Panel (06/05/21 20:45) Protime With Inr (06/05/21 20:45) Ua Culture If Indicated (06/05/21 20:45) Tranexamic Acid Injection (Cyklokapron I (06/05/21 21:00) Urine Culture (06/05/21 22:00) Medications Given in ED Current Medications Medications Dose Ordered Sig/Darell Route Start Time Stop Time Status Last Admin Dose Admin Tranexamic Acid 1,000 mg ONCE ONCE NA 06/05/21 21:00 06/05/21 21:01 DC 06/05/21 21:21 1,000 MG Vital Signs/I&O 06/05/21 20:49 Temp 37.0 Pulse 90 Resp 16 B/P (MAP) 137/89 (105) Pulse Ox 98 O2 Delivery Room Air Capillary Refill : Departure Communication (Admissions) She has been on Provera, we will put her on TXA and have her follow-up with gynecology. Impression Primary Impression: DUB (dysfunctional uterine bleeding) Disposition: HOME, SELF-CARE Condition: Stable Departure-Patient Inst. Decision time for Depature: 21:42 Referrals: GERARDO BABCOCK MD, ANNA K APRN (PCP) Primary Care Physician Patient Instructions: Heavy Periods (DC) Add. Discharge Instructions: 1. Call Dr. Babcock tomorrow to make an appointment to be seen the soonest she can see you. Take medication as directed. Return to ER for concerns. Scripts Tranexamic Acid (Lysteda) 650 Mg Tablet 2 TAB PO TID, #30 TAB Prov: ÓSCAR LACKEY APRN 06/05/21 ÓSCAR LACKEY APRN Jun 05, 2021 21:01
[2021-06-05 21:10] LABS: BASOPHILS % (AUTO) 0 % (0-10); EOSINOPHILS # (AUTO) 0.2 10^3/uL (0.0-0.3); EOSINOPHILS % (AUTO) 1 % (0-10); HEMATOCRIT 33 % (35-52); HEMOGLOBIN 10.2 g/dL (11.5-16.0); LYMPHOCYTES # (AUTO) 2.1 10^3/uL (1.0-4.0); LYMPHOCYTES % (AUTO) 16 % (12-44); MEAN CORPUSCULAR HEMOGLOBIN 27 pg (25-34); MEAN CORPUSCULAR HGB CONC 31 g/dL (32-36); MEAN CORPUSCULAR VOLUME 85 fL (80-99); MONOCYTES # (AUTO) 0.7 10^3/uL (0.0-1.0); MONOCYTES % (AUTO) 5 % (0-12); NEUTROPHILS # (AUTO) 9.9 10^3/uL (1.8-7.8); NEUTROPHILS % (AUTO) 77 % (42-75); PLATELET COUNT 316 10^3/uL (130-400); WHITE BLOOD COUNT 12.9 10^3/uL (4.3-11.0)
[2021-06-05 21:19] LABS: ALBUMIN 3.7 GM/DL (3.2-4.5); POTASSIUM 3.8 MMOL/L (3.6-5.0)
[2021-06-05 21:20] LABS: CALCIUM 9.3 MG/DL (8.5-10.1)
[2021-06-05 21:22] LABS: INR 0.9 (0.8-1.4); PROTHROMBIN TIME PATIENT 12.5 SEC (12.2-14.7); TOTAL PROTEIN 6.9 GM/DL (6.4-8.2)
[2021-06-05 21:23] LABS: BILIRUBIN,TOTAL 0.1 MG/DL (0.1-1.0)
[2021-06-05 21:25] LABS: CREATININE SERUM 0.83 MG/DL (0.60-1.30)
[2021-06-05] MEDS ORDERED: TRAN650T2 PO (21:45)
[2021-06-05 22:06] LABS: BILIRUBIN,URINE NEGATIVE (NEGATIVE); CLARITY,URINE SL CLOUDY; COLOR,URINE YELLOW; GLUCOSE, URINE (UA) NEGATIVE (NEGATIVE); KETONES,URINE NEGATIVE (NEGATIVE); LEUKOCYTE ESTERASE ,URINE NEGATIVE (NEGATIVE); NITRITE,URINE NEGATIVE (NEGATIVE); PROTEIN,URINE NEGATIVE (NEGATIVE)
[2021-06-05 22:34] LABS: BACTERIA,URINE MODERATE /HPF
[2021-06-05 22:51] VITALS: BP 161/110
== END 2021-06-05 22:51 | disposition home or self-care (01) ==
LOC: EDUNIT# 20:30 → ER 20:33
DX: N93.8 Other specified abnormal uterine and vaginal bleeding (principal); Z32.02 Encounter for pregnancy test, result negative
CPT/HCPCS: 36415; 80053; 81000; 84703; 85025; 85610; 87088; 99284

== ENCOUNTER 2021-07-17 05:33 | Outpatient (CLI) | payer SELFPAY ==
[~2021-07-17] VITALS: Ht 160 cm; Wt 102.3 kg
[~2021-07-17 05:33] MED LIST changes: +TRAN650T2 PO
[2021-07-18] MEDS ORDERED: QUET50TA PO (10:51)
[2021-07-18] MEDS ORDERED: LISI5TAB20 PO (10:51)
[2021-07-18] MEDS ORDERED: SERT100T PO (10:51)
== END 2021-07-18 11:06 | disposition home or self-care (01) ==
LOC: PREOP 05:33
PROVIDERS: ATTEND Obstetrics & Gynecology
DX: Z01.818 Encounter for other preprocedural examination (principal)

== ENCOUNTER 2021-07-24 06:14 | Day surgery (SDC) | payer OTHER ==
[~2021-07-24] VITALS: Ht 160 cm; Wt 102.3 kg
[2021-07-24] VITALS (12 sets, daily range): BP systolic 114–131; BP diastolic 1–88
[~2021-07-24 06:14] MED LIST changes: +LISI5TAB20 PO; +QUET50TA PO; +SERT100T PO
[2021-07-24] MEDS ORDERED: ceFAZolin 2 GM IV Premixed 50 ML IV ONE (06:15)
[2021-07-24] MEDS: LACTATED RINGERS 1,000 ML IV PRN ×3 (06:40→10:06)
[2021-07-24 06:45] LABS: CLARITY,URINE SL CLOUDY; COLOR,URINE YELLOW; GLUCOSE, URINE (UA) NEGATIVE (NEGATIVE); KETONES,URINE 1+ (NEGATIVE); LEUKOCYTE ESTERASE ,URINE 1+ (NEGATIVE); NITRITE,URINE NEGATIVE (NEGATIVE); PH,URINE 5.5 (5-9); PROTEIN,URINE NEGATIVE (NEGATIVE)
[2021-07-24 06:59] LABS: AMORPHOUS SEDIMENT,UR FEW AMOR URATES /LPF; BACTERIA,URINE FEW /HPF; BILIRUBIN,URINE NEGATIVE (NEGATIVE)
[2021-07-24] MEDS ORDERED: MIDAZOLAM 2 MG/2 ML (VERSED) VIAL IV ONE (07:00)
[2021-07-24 07:07] LABS: BASOPHILS % (AUTO) 0 % (0-10); EOSINOPHILS # (AUTO) 0.2 10^3/uL (0.0-0.3); EOSINOPHILS % (AUTO) 2 % (0-10); HEMATOCRIT 39 % (35-52); HEMOGLOBIN 12.5 g/dL (11.5-16.0); LYMPHOCYTES # (AUTO) 1.5 10^3/uL (1.0-4.0); LYMPHOCYTES % (AUTO) 16 % (12-44); MEAN CORPUSCULAR HEMOGLOBIN 28 pg (25-34); MEAN CORPUSCULAR HGB CONC 32 g/dL (32-36); MEAN CORPUSCULAR VOLUME 87 fL (80-99); MEAN PLATELET VOLUME 10.8 fL (9.0-12.2); MONOCYTES # (AUTO) 0.6 10^3/uL (0.0-1.0); MONOCYTES % (AUTO) 6 % (0-12); NEUTROPHILS # (AUTO) 7.1 10^3/uL (1.8-7.8); NEUTROPHILS % (AUTO) 76 % (42-75); PLATELET COUNT 338 10^3/uL (130-400); WHITE BLOOD COUNT 9.4 10^3/uL (4.3-11.0)
[2021-07-24] MEDS ORDERED: ONDANSETRON 4 MG/2 ML (SDV) Z0FRAN ONE ×2 (07:13→10:20)
[2021-07-24] MEDS ORDERED: proPOfol 200 MG/20 ML (DIPRIVAN) VIAL IV ONE (07:13)
[2021-07-24] MEDS ORDERED: ROCURONIUM 50 MG/5 ML (ZEMURON) VIAL IV ONE (07:13)
[2021-07-24] MEDS ORDERED: fentaNYL INJ 100 MCG/2 ML AMP ONE ×3 (07:14→10:20)
--- NOTE | 2021-07-24 07:25 | Progress Note-Pre Operative ---
Pre-Operative Progress Note H&P Reviewed The H&P was reviewed, patient examined and no changes noted. continues to desire hysterectomy with ovarian conservation as long as ovaries visualized as normal intraop. Was unable to involve urologist due to costs. Will not plan on urethral sling today. Will consider cystocele repair if apical support with uterosacral ligament suspension inadequate. Time Seen by Provider: 07:12 Date H&P Reviewed: Jul 24, 2021 Time H&P Reviewed: 07:15 Pre-Operative Diagnosis: AUB, failed medical therapy. cystocele with female incontinence GERARDO ANDRES MD Jul 24, 2021 07:25
[2021-07-24] MEDS ORDERED: MIDAZOLAM 2 MG/2 ML (VERSED) VIAL ONE (07:26)
[2021-07-24] MEDS ORDERED: PROMETHAZINE INJ 25 MG/ML (PHENERGAN) AMP IVP PRN (07:30)
[2021-07-24] MEDS ORDERED: D5 LR IV SOLUTION 1,000 ML IV SCH (07:30)
[2021-07-24] MEDS ORDERED: NALOXONE 0.4 MG/ML 1 ML (NARCAN) VIAL IV PRN (07:30)
[2021-07-24] MEDS ORDERED: IBUP-1773 PO (07:32)
[2021-07-24] MEDS ORDERED: OXYC5CAP18 PO (07:33)
[2021-07-24 08:19] LABS: ALBUMIN 4.2 GM/DL (3.2-4.5); BILIRUBIN,TOTAL 0.4 MG/DL (0.1-1.0); CALCIUM 9.3 MG/DL (8.5-10.1); CREATININE SERUM 0.82 MG/DL (0.60-1.30); POTASSIUM 3.8 MMOL/L (3.6-5.0)
[2021-07-24] MEDS ORDERED: LIDOCAINE/EPI 2% 1:200,00 (XYLOCAINE) 10 ML VIAL ONE (08:21)
[2021-07-24] MEDS ORDERED: LIDOCAINE PF 2% 5 ML (XYLOCAINE) VIAL ONE (08:24)
[2021-07-24] MEDS ORDERED: SEVOFLURANE (ULTANE) 15 ML INHAL SOLN ONE (09:38)
[2021-07-24] MEDS ORDERED: NEOSTIGMINE 3 MG/3 ML VIAL ONE (09:38)
[2021-07-24] MEDS ORDERED: GLYCOPYRROLATE 0.2 MG/ML (ROBINUL) 2 ML VIAL ONE (09:38)
--- NOTE | 2021-07-24 10:05 | OB/GYN Operative Report ---
Operative Report Date of Procedure:Jul 24, 2021 Preoperative Diagnosis: [Abnormal uterine bleeding failed medical therapy and cystocele abnormal uterine bleeding failed medical therapy and cystocele] Postoperative Diagnosis: [] Same Name of the Procedure: [] Robotic assisted laparoscopic hysterectomy Surgeon: Gerardo Andres Telephone Betting Clerk(s): [none] Anesthesia: [General] Indications for Procedure: As above [] Findings of the Procedure: [Uterine prolapse with cervix at introitus, normal appearing parous cervix, tubes consistent with history of ligation normal- appearing ovaries with simple cyst changes] Name and Description of the Procedure: [] After the risk benefits alternatives of the procedure were described to the patient she was taken to the operating room where general anesthesia was obta ined at difficulty. She was placed in dorsal lithotomy position and prepped and draped in the usual sterile fashion a weighted speculum was placed in the patient's vagina after Masterson catheter was placed and the anterior lip of the cervix was grasped with double-tooth tenaculum. The uterus was sounded to 8 cm and a Roxana manipulator was assembled in the usual sterile fashion securing the manipulator to the cervix with 0 Vicryl [id number] stitches at 3 and 9 o'clock position. All other instruments removed from the patient's vagina and attention was turned the abdominal portion appeared procedure. An 8 mm skin incision was made above the umbilicus in the midline and a varies needle was advanced while tenting the abdominal wall upward. Pneumoperitoneum was achieved and the varies needle was removed and an 8 mm trocar and sleeve were advanced without difficulty within the abdominal cavity. The abdomen and pelvis were surveyed with the above findings and the patient was placed in Trendelenburg. An 8 mm skin incision was made in the right left lower quadrants and corresponding trocar and sleeves were advanced without difficulty under direct visualization. The pelvis was surveyed with the above findings. The da Benson robot was docked in the usual sterile fashion and vessel sealer placed on the second arm camera in the third and monopolar hook cautery and the fourth. From the robotic console the pelvis was surveyed with the above findings. The ureters were visualized to course over the pelvic brim bilaterally outside the anticipated field. The monopolar hook cautery was removed and grasper was used to amputate the fimbriated ends of the fallopian tubes that remained and delivered through the port and sent for pathology. Hemostasis was assured. The monopolar hook cautery was returned and the ovarian suspensory ligaments were isolated cauterized and cut hemostasis was visualized. The round ligaments likewise were isolated cauterized and cut hemostasis was visualized. The broad ligaments were dissected down towards the cervix and the uterine vessels skeletonized isolated cauterized and cut hemostasis was assured. The vesicouterine peritoneum was dissected off the lower cervix segment and an anterior colpotomy was made over the cuff. The cervix was amputated circumferentially with monopolar cautery and the specimen was delivered intact through the vagina and sent for pathology. Pneumoperitoneum was maintained by placing a lap sponge in the patient's vagina. The robotic instruments were exchanged for fenestrated bipolar and the second arm and Saul suture cut and the fourth. The vaginal cuff was closed with a running barbed locked stitch running lateral to midline and crossing in the midline. Of note during closure 2 additional stitches were placed securing the cuff to the uterosacral ligament bilaterally. Hemostasis was appreciated and all instruments removed from the patient's abdomen. The skin incisions were closed with subcuticular 4-0 Monocryl stitch. Dermabond dressing was placed. The lap sponge was removed from the patient's vagina and hemostasis was visualized at the cuff. With apical support in place cystocele was sig nificantly reduced and no additional procedures were performed. The catheter was removed. Patient tolerated the procedure well sponge lap needle instrument counts were correct and she was taken the recovery room awake and in stable condition. She received 2 g of Ancef prior to procedure Complications: None Disposition: [] GERARDO ANDRES MD Jul 24, 2021 10:05
[2021-07-24] MEDS ORDERED: KETOROLAC 30 MG/ML VIAL ONE (10:15)
[2021-07-24] MEDS ORDERED: ONDANSETRON 4 MG/2 ML (SDV) Z0FRAN IVP PRN (10:30)
[2021-07-24] MEDS ORDERED: fentaNYL INJ 100 MCG/2 ML AMP IVP ONE (10:30)
--- NOTE | 2021-07-24 10:54 | Anesthesia-General Post-Op ---
General Patient Condition Mental Status/LOC: Same as Preop Cardiovascular: Satisfactory Nausea/Vomiting: Absent Respiratory: Satisfactory Pain: Controlled Complications: Absent Post Op Complications Complications None Follow Up Care/Instructions Patient Instructions None needed. Anesthesia/Patient Condition Patient Condition Patient is doing well, no complaints, stable vital signs, no apparent adverse anesthesia problems. No complications reported per nursing. REED YOUNG CRNA Jul 24, 2021 10:54
[2021-07-24] MEDS ORDERED: ACETAMINOPHEN 500 MG TAB (TYLENOL) PO SCH (12:00)
[2021-07-24] MEDS ORDERED: KETOROLAC 30 MG/ML VIAL IV SCH (12:00)
[2021-07-25] MEDS ORDERED: DOCUSATE SODIUM 100 MG (COLACE) CAP PO SCH (09:00)
[2021-07-25] MEDS ORDERED: IBUPROFEN 600 MG (MOTRIN) TAB PO SCH (12:00)
== END 2021-07-24 17:35 ==
LOC: SDC 06:14 → WS 11:44 → SDC 17:35
PROVIDERS: ATTEND Obstetrics & Gynecology
DX: N81.2 Incomplete uterovaginal prolapse (principal); N93.9 Abnormal uterine and vaginal bleeding, unspecified; N39.3 Stress incontinence (female) (male); D50.0 Iron deficiency anemia secondary to blood loss (chronic); Z87.891 Personal history of nicotine dependence
CPT/HCPCS: 36415; 80053; 81000; 84703; 85025; 86850; 86900; 86901; 87081; 87088; 94664

== ENCOUNTER 2022-01-10 11:57 | Emergency (ER) | payer OTHER ==
[~2022-01-10 11:57] MED LIST changes: +IBUP-1773 PO; +OXYC5CAP18 PO
[2022-01-10 12:06] VITALS: BP 141/99
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
[2022-01-10] MEDS ORDERED: OLANZapine 5 MG ODT (ZyPREXA ZYDIS) ONE (13:25)
[2022-01-10] MEDS ORDERED: OLANZapine 5 MG ODT (ZyPREXA ZYDIS) PO ONE (13:30)
== END 2022-01-10 13:32 ==
LOC: EDUNIT# 11:57 → ER FS 11:59
DX: Z00.00 Encounter for general adult medical examination without abnormal findings (principal)
CPT/HCPCS: 99283